=== PATIENT | female | born 1955 ===

== ENCOUNTER → 2016-06-09 | Outpatient (CLI) | payer OTHER ==
--- NOTE | 2016-06-12 12:46 | MAMMOGRAPHY REPORT ---
BILATERAL DIGITAL SCREENING MAMMOGRAM TOMOSYNTHESIS WITH CAD: 06/09/2016 CLINICAL HISTORY: Routine screening. Patient has no complaints. TECHNIQUE: Breast tomosynthesis in addition to standard 2D mammography was performed. Current study was also evaluated with a Computer Aided Detection (CAD) system. COMPARISON: Comparison is made to exams dated: 12/20/2015 ultrasound biopsy, 12/20/2015 mammogram, 11/23/2015 mammogram, 11/23/2015 ultrasound, 05/18/2015 ultrasound, and 05/11/2015 mammogram - [facility]. BREAST COMPOSITION: There are scattered areas of fibroglandular density in both breasts. FINDINGS: A biopsy marker clip is again noted in the right upper outer quadrant from prior benign s tereotactic biopsy. There is a new asymmetry with associated mild architectural distortion seen sli ghtly lateral and superior to the biopsy clip. The asymmetry appears to be going along the biopsy t ract when reviewing the postprocedural mammograms dated 12/20/2015. Additionally, there may be fat density seen within the asymmetry on the cc tomosynthesis images, suggestive of possible fat necrosi s. While this likely represents postbiopsy changes/fat necrosis, recommend spot compression tomosyn thesis views and possible breast ultrasound for further evaluation. The remainder of both breasts are stable compared to prior exams, without suspicious masses, calcifi cations, or areas of architectural distortion noted. A biopsy marker clip is again noted in the rig ht lower inner quadrant. Small benign-appearing left breast masses are stable compared to prior exa ms. IMPRESSION: ACR BI-RADS CATEGORY 0: INCOMPLETE EVALUATION: NEED ADDITIONAL IMAGING EVALUATION Right breast asymmetry adjacent to the biopsy marker clip from recent stereotactic biopsy, for which additional imaging evaluation is recommended. The patient will be called to schedule an appointmen t. Approximately 10% of breast cancers are not detected with mammography. A negative mammographic repor t should not delay biopsy if a clinically suggestive mass is present. Brittney Madden M.D. /:06/11/2016 12:28:18 Punch Out Crew Member: Lana JARAMILLO)(Andria), [facility] letter sent: Addl Imaging 0 BI-RADS Code: ACR BI-RADS Category 0: Incomplete Evaluation: Need Additional Imaging Evaluation
== END | disposition home or self-care (01) ==
LOC: C.MAMM 14:31
PROVIDERS: ATTEND Family Medicine
DX: Z12.31 Encounter for screening mammogram for malignant neoplasm of breast (principal); N64.89 Other specified disorders of breast

== ENCOUNTER → 2016-06-27 | Outpatient (CLI) | payer OTHER ==
--- NOTE | 2016-06-30 07:34 | MAMMOGRAPHY REPORT ---
UNILATERAL RIGHT DIGITAL DIAGNOSTIC MAMMOGRAM TOMOSYNTHESIS: 06/27/2016 CLINICAL HISTORY: Call back from screening mammography for an asymmetry adjacent to the biopsy marke r clip in the right upper outer quadrant, at the site of previous benign stereotactic biopsy. TECHNIQUE: Spot compression 2-D digital and tomosynthesis CC and MLO views of the right upper outer quadrant were obtained. COMPARISON: Comparison is made to exams dated: 06/09/2016 mammogram, 12/20/2015 ultrasound biopsy, mammogram, 12/20/2015 stereotactic biopsy, 11/23/2015 mammogram, and 11/23/2015 ultrasound - [facility]. BREAST COMPOSITION: There are scattered areas of fibroglandular density in the right breast. FINDINGS: There is a stable dumbbell-shaped metallic biopsy marker in the upper outer middle one thi rd of the right breast, denoting the site of benign stereotactic biopsy. There is a nodular and jessi ear tract lateral and superior to the biopsy marker clip measuring 8 x 19 mm. When comparing the cu rrent spot compression views to the postprocedure right CC and ML views obtained after the biopsy on 12/20/2015, the linear asymmetry is in the same location as the previously identified air pocket fr om the biopsy, compatible with the biopsy cavity. Additionally, on the current spot compression CC tomosynthesis images, there are probable lucent areas within the asymmetry, suggesting early fat nec rosis. However, given that the appearance is different from the original mammograms prior to the bi opsy and also different from the immediate post procedure images, a short interval follow-up diagnos tic mammogram is recommended to ensure stability in 6 months. IMPRESSION: ACR-BI-RADS CATEGORY 3: PROBABLY BENIGN The newly visualized linear asymmetry superior and lateral to the dumbbell-shaped biopsy marker clip in the right upper outer quadrant most likely represents postbiopsy change with possible fat necros is, given that its orientation is exactly in line with the biopsy tract. However, given the interva l change comparing to prior available mammograms, a short interval follow-up diagnostic right mammog willa with possible ultrasound is recommended to ensure stability in 6 months. These results and recommendations were discussed with the patient at the time of the exam. She tent atively scheduled a follow-up appointment prior to leaving our department. Approximately 10% of breast cancers are not detected with mammography. A negative mammographic repor t should not delay biopsy if a clinically suggestive mass is present. Jacklyn Alva M.D. ay/:06/27/2016 14:00:35 Civil Geotechnical Engineer: Sagrario YADAV(Nevaeh)(Andria), [facility] letter sent: Follow Up Recommended 3 BI-RADS Code: ACR-BI-RADS Category 3: Probably Benign
== END | disposition home or self-care (01) ==
LOC: C.MAMM 12:53
PROVIDERS: ATTEND Family Medicine
DX: N64.9 Disorder of breast, unspecified (principal)

== ENCOUNTER → 2016-12-27 | Outpatient (CLI) | payer OTHER ==
--- NOTE | 2016-12-27 14:26 | MAMMOGRAPHY REPORT ---
UNILATERAL RIGHT DIGITAL DIAGNOSTIC MAMMOGRAM TOMOSYNTHESIS WITH CAD: 12/27/2016 CLINICAL HISTORY: 61-year-old woman presents for follow-up in the right breast for an asymmetry with associated distortion along the expected prior biopsy tract from a stereotactic biopsy. TECHNIQUE: Right breast tomosynthesis in addition to standard 2D mammography was performed. Current deidre rueda was also evaluated with a Computer Aided Detection (CAD) system. COMPARISON: Comparison is made to exams dated: 06/27/2016 mammogram, 06/09/2016 mammogram, 12/20/2015 u ltrasound biopsy, 12/20/2015 mammogram, 12/20/2015 stereotactic biopsy, and 11/23/2015 mammogram - [facility]. BREAST COMPOSITION: The tissue of the right breast is almost entirely fatty. FINDINGS: The asymmetry with associated architectural distortion in a linear distribution lateral and superior to the dumbbell shaped biopsy marker clip in the right upper outer quadrant has decreased i n prominence and bulbous nodularity when comparing to the prior spot compression tomosynthesis views, confirming continued healing. This finding is compatible with postbiopsy change. No new suspicious mass, architectural distortion or cluster of microcalcifications is seen in the right breast. IMPRESSION: ACR BI-RADS CATEGORY 2: BENIGN Decreased nodular prominence and associated distortion in a linear distribution in the right upper ou ter quadrant, lateral and superior to the biopsy marker clip denoting a site of prior benign stereota ctic biopsy. These findings are consistent with postbiopsy change and recommend return to annual scr eening mammography schedule, due in June 2017. Approximately 10% of breast cancers are not detected with mammography. A negative mammographic report should not delay biopsy if a clinically suggestive mass is present. Jacklyn Alva M.D. ay/:12/27/2016 13:31:03 Auditor Tax: Sagrario López, [facility] letter sent: Normal 1/2 BI-RADS Code: ACR BI-RADS Category 2: Benign
== END | disposition home or self-care (01) ==
LOC: C.MAMM 13:02
PROVIDERS: ATTEND Family Medicine
DX: N64.89 Other specified disorders of breast (principal); Z98.890 Other specified postprocedural states